=== PATIENT | male | born 1975 | race Caucasian/White ===

== ENCOUNTER 2024-11-05 09:00 | Outpatient (RCR) | payer OTHER, SELFPAY ==
--- NOTE | 2024-10-06 08:55 | OPREHPOC ---
Outpatient Therapy Plan of Care This is a Multidisciplinary Plan of Care that may contain components documented by all disciplines (PT, OT, and ST.) PT Problem 1 PT Problem #1 Knowledge Deficit PT Goal 1 Goal / Goal Update 1. Pt to be IND with issued HEP. Target Visit 6 PT Problem 2 PT Problem #2 Pain PT Goal 1 Goal / Goal Update 1. Pt to report neck pain no greater than 3/10 in the last week. 2. Pt to report no headaches in the last week. PT Problem 3 PT Problem #3 Impaired Range of Motion PT Goal 1 Goal / Goal Update 1. Pt to demonstrate upright posture throughout treatment.
--- NOTE | 2024-10-06 08:55 | PTOPEVAL1 ---
Assessment and note entered by Steven Jackson, PT, DPT Evaluation Information Assessment Status Evaluation Diagnosis neck pain, narayan shoulder pain ICD-10 Condition Codes (PT) Cervicalgia M54.2,Pain in left shoulder M25.512, Pain in right elbow M25.521 Onset 6 months Subjective Information Pt reports a 6 month history of neck and shoulder pain. He was been given multiple different muscle relaxers without relief. He reports consistent pain in his neck and shoulders, and about 1-2 headache days per week. He reports his headaches feel tension related. 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 Reported Pain Level Pain Score 4: Self Report Assessment PT Clinical Summary Pt presents to therapy today for his initial evaluation with a diagnosis of neck and shoulder pain. Today he demonstrates forward, rounded shoulders, a forward head, and increased thoracic kyphosis in sitting. He demonstrates good shoulder , cervical, and thoracic mobility with reports of muscle tension. There is multiple shortening in his pectoralis narayan and tenderness in his suboccipitial. Skilled therapy services are indicated to improved muscle flexibility, improve posture, and to return to PLOF. Plan of Care Interventions Electrical Stimulation,Hot Pack/Cold Pack,Manual Therapy,Neuro Re-education,Patient/Caregiver Education,Therapeutic Activities,Therapeutic Exercise PT Services Indicated Yes Treatment Frequency and 1x/wk for 6 visits Duration These treatments will address the objective and functional deficits as defined above. The patient will be advanced safely and appropriately in order for the patient to progress towards his/her prior level of function. Additional exercises will be introduced and as well as a comprehensive home exercise program upon discharge, if needed, ?to ensure carryover of functional gains achieved in the clinic. This treatment plan has been reviewed and agreement upon by the patient.
--- NOTE | 2024-10-15 10:43 | PCPTNOTE ---
Patient was canceled this date due to therapist being out of clinic with illness.
--- NOTE | 2024-11-05 09:41 | PTOPDC ---
Assessment and note entered by Steven Jackson, PT, DPT Evaluation Information Assessment Status Discharge Diagnosis neck pain, narayan shoulder pain ICD-10 Condition Codes (PT) Cervicalgia M54.2,Pain in left shoulder M25.512, Pain in right elbow M25.521 Onset 6 months Subjective Information Pt states it feels like his neck is doing better, he reports good compliance with his HEP. Reports 2 /10 pain at the worst in the last week. He states he has become more aware of his posture and mechanics. He reports mild neck tension today, states he has not felt this in the last week so is wondering if it is the weather. Reported Pain Level Pain Score 2: Self Report Assessment PT Clinical Summary Pt presents to therapy today for his progress report following 4 visits of skilled therapy to treat his diagnosis of neck and shoulder pain. Today he demonstrates improved cervical ROM, improved posture awareness, and decreased pain reports. He has met or progressed well towards all of his therapy goals and no longer requires skilled services. He will be discharged at this time. Plan of Care PT Services Indicated No
--- NOTE | 2024-11-05 09:41 | OPREHPOC ---
Outpatient Therapy Plan of Care This is a Multidisciplinary Plan of Care that may contain components documented by all disciplines (PT, OT, and ST.) PT Problem 1 PT Problem #1 Knowledge Deficit PT Goal 1 Goal / Goal Update 1. Pt to be IND with issued HEP. Target Visit 6 Progress Met PT Problem 2 PT Problem #2 Pain PT Goal 1 Goal / Goal Update 1. Pt to report neck pain no greater than 3/10 in the last week. 2. Pt to report no headaches in the last week. 11/05/24: 1-2. met Progress Met PT Problem 3 PT Problem #3 Impaired Range of Motion PT Goal 1 Goal / Goal Update 1. Pt to demonstrate upright posture throughout treatment. 11/05/24: 1. met
== END 2024-12-16 12:53 | disposition home or self-care (01) ==
LOC: ANHGOSHPT 09:00
PROVIDERS: PCP Family Medicine; Visit Provider Family Medicine
DX: M54.2 Cervicalgia (principal); M25.511 Pain in right shoulder; M25.512 Pain in left shoulder
CPT/HCPCS: 97110; 97140; 97161; 97530